=== PATIENT | female | born 1990 | race African-American/Black ===

== ENCOUNTER 2024-12-16 11:05 | Emergency (ER) | payer OTHER, BC ==
[2024-12-16 11:12] VITALS: BP 134/90; PULSE 84; RESP 18; TEMP 98.9; BMI 30.4
[2024-12-16] MEDS ORDERED: IBUPROFEN 600 MG TABLET (FP) PO ONE (11:31)
[2024-12-16] MEDS ORDERED: LIDOCAINE 5% TOPICAL PATCH ONE (11:32)
[2024-12-16] MEDS: IBUPROFEN 600 MG TABLET (FP) PO ONE (11:38)
[2024-12-16] MEDS: LIDOCAINE 5% TOPICAL PATCH TP ONE (11:38)
[2024-12-16] MEDS ORDERED: LIDOCAINE PATCH REMOVAL MC ONE (22:00)
== END 2024-12-16 12:15 | disposition home or self-care (01) ==
LOC: FER 11:05
DX: M54.6 Pain in thoracic spine (principal); M25.561 Pain in right knee; X50.1XXA Overexertion from prolonged static or awkward postures, initial encounter
CPT/HCPCS: 99283-25